=== PATIENT | female | born 1995 | race Caucasian/White ===

== ENCOUNTER 2017-10-17 17:32 | Inpatient (IN) | payer OTHER ==
[~2017-10-17] VITALS: Ht 152.4 cm; Wt 51.8 kg
[~2017-10-17 17:32] MED LIST: BACTRIM,SEPT1 TABLET PO; PERCOCET 7.51 TABLET PO; PREDNISONE10 MG PO; VICODIN,LORT1 TABLET PO
[2017-10-17 19:35] LABS: ALBUMIN 4.1 g/dL (3.2-4.8); CHLORIDE 97 mEq/L (99-109); POTASSIUM 2.7 mEq/L (3.7-5.4); SODIUM 130 mEq/L (136-147)
[2017-10-17 19:37] LABS: GLUCOSE 136 mg/dL (70-99)
[2017-10-17 19:38] LABS: TOTAL PROTEIN 7.7 g/dL (6.4-8.3)
[2017-10-17 19:39] LABS: TOTAL BILIRUBIN 0.5 mg/dL (0.0-1.0)
[2017-10-17 19:41] LABS: ALKALINE PHOSPHATASE 75 IU/L (3-129); CREATININE 0.8 mg/dL (0.6-1.3); GFR ESTIMATE (CALCULATED) > 59 mL/min/
[2017-10-17 19:42] LABS: UREA NITROGEN (BUN) 7 mg/dL (9-23)
[2017-10-17 19:43] LABS: AST (GOT) 65 IU/L (2-34)
[2017-10-17 19:44] LABS: ALT (GPT) 46 IU/L (3-49)
[2017-10-17 19:50] LABS: QUANTITATIVE HCG < 4.0 MIU/ML
[2017-10-17 19:56] LABS: HEMATOCRIT 37.5 % (36.0-46.0); HEMOGLOBIN 13.4 G/DL (11.9-15.5); MCH 28.5 PG (29.0-34.0); MCHC 35.7 G/DL (30.0-36.0); MCV 79.6 FL (83-99); PLATELET COUNT 120 K/uL (156-360); RBC DIS.WIDTH-SD 34.9 % (39-53); RED BLOOD COUNT 4.71 M/uL (3.80-5.20); WHITE BLOOD COUNT 7.7 K/uL (4.1-10.2)
[2017-10-17 19:59] LABS: APPEARANCE CLEAR ((CLEAR)); BILIRUBIN NEGATIVE; BLOOD LARGE; COLOR STRAW ((YELLOW)); GLUCOSE (STRIP) NEGATIVE; KETONES NEGATIVE; LEUKOCYTES NEGATIVE; NITRITE NEGATIVE; PROTEIN (STRIP) NEGATIVE; SPECIFIC GRAVITY 1.004 (1.000-1.030); UROBILINOGEN 0.2 MG/DL (0.2-1.0)
[2017-10-17 20:11] LABS: BACTERIA RARE /HPF; EPITHELIAL CELLS 1+ /HPF; MUCUS TRACE /LPF; RED BLOOD CELLS 0-5 /HPF (0-5); UCUL ADDED? NO; WHITE BLOOD CELLS 0-5 /HPF (0-5)
[2017-10-17 20:33] LABS: BASOPHIL (%) 0.8 % (0-1); BASOPHIL COUNT 0.1 K/uL (0-0.1); EOSINOPHIL (%) 0 % (0-5); IMMATURE GRANULOCYTE (%) 0.6 % (0.0-0.7); LYMPHOCYTE (%) 21.9 % (15-42); LYMPHOCYTE COUNT 1.7 K/uL (1.0-2.8); MONOCYTE (%) 7.1 % (3-12); MONOCYTE COUNT 0.6 K/uL (0-0.8); NEUTROPHIL (%) 69.6 % (45-76); NEUTROPHIL COUNT 5.4 K/uL (1.8-6.4)
[2017-10-17] MEDS ORDERED: TYLENOL EXTRA500 MG PO (20:37)
[2017-10-17] MEDS ORDERED: ONCE DAILY1 EACH PO (20:38)
[2017-10-18 00:32] VITALS: BP 105/58
[2017-10-18 01:18] LABS: TROP-I INTERPRETATION NEGATIVE; TROPONIN-I 0.01 ng/mL (0.0-0.30)
[2017-10-18 03:48] VITALS: BP 107/53
[2017-10-18 06:39] LABS: CHLORIDE 105 MEQ/L (99-109); CREATININE 0.5 MG/DL (0.6-1.3); GFR ESTIMATE (CALCULATED) > 59 mL/min/; GLUCOSE 108 mg/dL (70-99); SODIUM 136 MEQ/L (136-147); UREA NITROGEN (BUN) 6 mg/dL (9-23)
[2017-10-18 06:42] LABS: TROP-I INTERPRETATION NEGATIVE; TROPONIN-I < 0.01 ng/mL (0.0-0.30)
[2017-10-18 06:45] LABS: HEMATOCRIT 31.6 % (36.0-46.0); MCH 27.4 PG (29.0-34.0); MCHC 34.2 G/DL (30.0-36.0); MCV 80.2 FL (83-99); PLATELET COUNT 113 K/uL (156-360); RBC DIS.WIDTH-CV 12.2 % (11.8-14.6); RBC DIS.WIDTH-SD 35.8 % (39-53); RED BLOOD COUNT 3.94 M/uL (3.80-5.20); WHITE BLOOD COUNT 4.6 K/uL (4.1-10.2)
[2017-10-18 06:46] LABS: HEMOGLOBIN 10.8 G/DL (11.9-15.5); POTASSIUM 3.8 MEQ/L (3.7-5.4)
[2017-10-18 07:06] VITALS: BP 118/65
[2017-10-18 11:04] VITALS: BP 109/68
[2017-10-18 15:08] VITALS: BP 112/51
[2017-10-18 15:54] LABS: HEMATOCRIT 34.6 % (36.0-46.0); HEMOGLOBIN 11.7 G/DL (11.9-15.5); MCV 81.8 FL (83-99)
[2017-10-18 20:08] VITALS: BP 103/48
[2017-10-19 00:28] VITALS: BP 96/54
[2017-10-19 03:45] VITALS: BP 90/54
[2017-10-19 07:12] VITALS: BP 104/55
[2017-10-19 08:38] LABS: HEMATOCRIT 32.1 % (36.0-46.0); MCH 27.8 PG (29.0-34.0); MCHC 34.3 G/DL (30.0-36.0); MCV 81.3 FL (83-99); PLATELET COUNT 119 K/uL (156-360); RBC DIS.WIDTH-CV 12.9 % (11.8-14.6); RBC DIS.WIDTH-SD 38.3 % (39-53); RED BLOOD COUNT 3.95 M/uL (3.80-5.20); WHITE BLOOD COUNT 4.3 K/uL (4.1-10.2)
[2017-10-19 08:49] LABS: CHLORIDE 105 MEQ/L (99-109); CREATININE 0.4 MG/DL (0.6-1.3); CREATININE 0.5 MG/DL (0.6-1.3); GFR ESTIMATE (CALCULATED) > 59 mL/min/; GLUCOSE 108 mg/dL (70-99); POTASSIUM 3.6 MEQ/L (3.7-5.4); SODIUM 137 MEQ/L (136-147); UREA NITROGEN (BUN) 5 mg/dL (9-23)
[2017-10-19 09:22] LABS: VANCOMYCIN, TROUGH 3.7 MCG/ML (10-20)
[2017-10-19 10:26] LABS: HEPATITIS B SURFACE ANTIGEN Nonreactive
[2017-10-19 10:27] LABS: HIV-1/2 AB/AG COMBO Nonreactive
[2017-10-19 10:34] LABS: HEPATITIS C ANTIBODY REACTIVE
[2017-10-19 15:27] VITALS: BP 96/50
[2017-10-19 23:30] VITALS: BP 97/46
[2017-10-20 06:23] LABS: HEMATOCRIT 32.7 % (36.0-46.0); HEMOGLOBIN 11.1 G/DL (11.9-15.5); MCHC 33.9 G/DL (30.0-36.0); MCV 82.6 FL (83-99); PLATELET COUNT 145 K/uL (156-360); RBC DIS.WIDTH-CV 13.2 % (11.8-14.6); RED BLOOD COUNT 3.96 M/uL (3.80-5.20); WHITE BLOOD COUNT 4.8 K/uL (4.1-10.2)
[2017-10-20 06:44] LABS: CHLORIDE 108 MEQ/L (99-109); CREATININE 0.4 MG/DL (0.6-1.3); GFR ESTIMATE (CALCULATED) > 59 mL/min/; GLUCOSE 135 mg/dL (70-99); POTASSIUM 3.7 MEQ/L (3.7-5.4); SODIUM 142 MEQ/L (136-147); UREA NITROGEN (BUN) 5 mg/dL (9-23)
[2017-10-20 12:00] VITALS: BP 97/54
[2017-10-20 23:53] VITALS: BP 100/54
[2017-10-21 07:02] VITALS: BP 114/56
[2017-10-21] MEDS ORDERED: ZYVOX600 MG PO (11:04)
[2017-10-21 15:19] VITALS: BP 105/53
[2017-10-21 23:23] VITALS: BP 108/59
[2017-10-22 07:44] VITALS: BP 101/53
[2017-10-22 15:57] VITALS: BP 121/62
[2017-10-23 00:06] VITALS: BP 103/55
[2017-10-23 07:37] VITALS: BP 108/59
[2017-10-23] MEDS ORDERED: HYDROXYZINE PAM25 MG PO (11:40)
== END 2017-10-23 12:03 | disposition home or self-care (01) | DRG 871 ==
LOC: EME 17:32 → EDOF 22:31 → 5SOUTH 22:31 → ENRESERV 22:38 → 5SOUTH 10-18 00:01 → ENRESERV 10-18 00:04 → 5SOUTH 10-23 12:03
PROVIDERS: Hospitalist; Internal Medicine Infectious Disease; Physician Assistant; Physician Assistant Medical
DX: A41.01 Sepsis due to Methicillin susceptible Staphylococcus aureus (principal); I33.0 Acute and subacute infective endocarditis; I26.90 Septic pulmonary embolism without acute cor pulmonale; F15.10 Other stimulant abuse, uncomplicated; E87.1 Hypo-osmolality and hyponatremia; E87.6 Hypokalemia; B19.20 Unspecified viral hepatitis C without hepatic coma; D69.6 Thrombocytopenia, unspecified; D64.9 Anemia, unspecified; M41.9 Scoliosis, unspecified; F17.210 Nicotine dependence, cigarettes, uncomplicated; F11.11 Opioid abuse, in remission
CPT/HCPCS: 71046; 71275; 80048; 80053; 80202; 81003; 82565; 83605; 84484; 84702; 85014; 85018; 85025; 85027; 86803; 87040; 87077; 87186; 87340; 87389; 87801; 93005; 93306; 99281; 99285; J0696; J1580; J1650; J2405; J2543; J3370; J7030; J7050; Q0177; S0032

== ENCOUNTER 2017-10-31 02:16 | Inpatient (IN) | payer OTHER ==
[~2017-10-31] VITALS: Ht 165.1 cm; Wt 58.9 kg
[~2017-10-31 02:16] MED LIST changes: +HYDROXYZINE PAM25 MG PO; +ONCE DAILY1 EACH PO; +TYLENOL EXTRA500 MG PO; +ZYVOX600 MG PO
[2017-10-31 04:29] LABS: BASOPHIL (%) 0.1 % (0-1); EOSINOPHIL (%) 0 % (0-5); HEMATOCRIT 30.9 % (36.0-46.0); HEMOGLOBIN 10.5 G/DL (11.9-15.5); IMMATURE GRANULOCYTE (%) 0.4 % (0.0-0.7); LYMPHOCYTE (%) 7.3 % (15-42); LYMPHOCYTE COUNT 0.6 K/uL (1.0-2.8); MCH 28.5 PG (29.0-34.0); MONOCYTE (%) 7.8 % (3-12); MONOCYTE COUNT 0.6 K/uL (0-0.8); NEUTROPHIL (%) 84.4 % (45-76); NEUTROPHIL COUNT 6.6 K/uL (1.8-6.4); PLATELET COUNT 155 K/uL (156-360); RBC DIS.WIDTH-CV 14.5 % (11.8-14.6); RBC DIS.WIDTH-SD 43.7 % (39-53); RED BLOOD COUNT 3.68 M/uL (3.80-5.20); WHITE BLOOD COUNT 7.8 K/uL (4.1-10.2)
[2017-10-31 04:37] LABS: CHLORIDE 97 mEq/L (99-109); POTASSIUM 3.4 mEq/L (3.7-5.4); SODIUM 131 mEq/L (136-147)
[2017-10-31 04:39] LABS: GLUCOSE 116 mg/dL (70-99)
[2017-10-31 04:43] LABS: CREATININE 0.6 mg/dL (0.6-1.3); GFR ESTIMATE (CALCULATED) > 59 mL/min/
[2017-10-31 04:44] LABS: UREA NITROGEN (BUN) 8 mg/dL (9-23)
[2017-10-31 05:52] LABS: ALBUMIN 3.6 g/dL (3.2-4.8)
[2017-10-31 05:55] LABS: TOTAL PROTEIN 6.9 g/dL (6.4-8.3)
[2017-10-31 05:57] LABS: TOTAL BILIRUBIN 0.7 mg/dL (0.0-1.0)
[2017-10-31 05:58] LABS: ALKALINE PHOSPHATASE 79 IU/L (3-129)
[2017-10-31 06:00] LABS: AST (GOT) 22 IU/L (2-34); DIRECT BILIRUBIN 0.3 mg/dL (0.0-0.3)
[2017-10-31 06:01] LABS: ALT (GPT) 21 IU/L (3-49); LIPASE 14 U/L (1.0-51.0)
[2017-10-31 08:55] LABS: APPEARANCE SL.HAZY ((CLEAR)); BILIRUBIN NEGATIVE; BLOOD SMALL; COLOR YELLOW ((YELLOW)); GLUCOSE (STRIP) NEGATIVE; KETONES NEGATIVE; LEUKOCYTES LARGE; NITRITE NEGATIVE; PROTEIN (STRIP) NEGATIVE; SPECIFIC GRAVITY 1.003 (1.000-1.030); UROBILINOGEN 0.2 MG/DL (0.2-1.0)
[2017-10-31 09:13] LABS: BACTERIA 1+ /HPF; EPITHELIAL CELLS 1+ /HPF; MUCUS NONE SEEN /LPF; WHITE BLOOD CELLS 30-40 /HPF (0-5)
[2017-10-31 13:22] VITALS: BP 109/48
[2017-10-31 20:02] VITALS: BP 98/50
[2017-10-31 23:22] VITALS: BP 88/53
[2017-11-01 00:33] VITALS: BP 97/52
[2017-11-01 03:40] VITALS: BP 99/57
[2017-11-01 06:22] LABS: HEMATOCRIT 23.6 % (36.0-46.0); MCH 28.5 PG (29.0-34.0); MCHC 33.9 G/DL (30.0-36.0); PLATELET COUNT 131 K/uL (156-360); RBC DIS.WIDTH-CV 15.1 % (11.8-14.6); RBC DIS.WIDTH-SD 45.2 % (39-53); WHITE BLOOD COUNT 6.3 K/uL (4.1-10.2)
[2017-11-01 06:26] LABS: RED BLOOD COUNT 2.81 M/uL (3.80-5.20)
[2017-11-01 06:28] LABS: CHLORIDE 110 MEQ/L (99-109); CREATININE 0.4 MG/DL (0.6-1.3); GFR ESTIMATE (CALCULATED) > 59 mL/min/; GLUCOSE 119 mg/dL (70-99); POTASSIUM 3.5 MEQ/L (3.7-5.4); SODIUM 141 MEQ/L (136-147); UREA NITROGEN (BUN) 8 mg/dL (9-23)
[2017-11-01 06:41] LABS: VANCOMYCIN, TROUGH 4.1 MCG/ML (10-20)
[2017-11-01 06:58] VITALS: BP 133/61
[2017-11-01 11:00] VITALS: BP 91/50
[2017-11-01 15:00] VITALS: BP 96/60
[2017-11-01 19:15] VITALS: BP 104/52
[2017-11-02 00:39] VITALS: BP 100/58
[2017-11-02 04:25] VITALS: BP 112/58
[2017-11-02 07:21] VITALS: BP 110/58
[2017-11-02 09:04] LABS: BASOPHIL (%) 0.5 % (0-1); EOSINOPHIL (%) 0.2 % (0-5); HEMATOCRIT 24.6 % (36.0-46.0); HEMOGLOBIN 8.2 G/DL (11.9-15.5); LYMPHOCYTE (%) 16.7 % (15-42); LYMPHOCYTE COUNT 1.1 K/uL (1.0-2.8); MCH 28.1 PG (29.0-34.0); MCHC 33.3 G/DL (30.0-36.0); MCV 84.2 FL (83-99); MONOCYTE (%) 8.4 % (3-12); MONOCYTE COUNT 0.5 K/uL (0-0.8); NEUTROPHIL (%) 73.2 % (45-76); NEUTROPHIL COUNT 4.6 K/uL (1.8-6.4); PLATELET COUNT 155 K/uL (156-360); RBC DIS.WIDTH-CV 15.8 % (11.8-14.6); RBC DIS.WIDTH-SD 47.9 % (39-53); RED BLOOD COUNT 2.92 M/uL (3.80-5.20); WHITE BLOOD COUNT 6.3 K/uL (4.1-10.2)
[2017-11-02 09:27] LABS: CHLORIDE 105 MEQ/L (99-109); CREATININE 0.4 MG/DL (0.6-1.3); GFR ESTIMATE (CALCULATED) > 59 mL/min/; GLUCOSE 137 mg/dL (70-99); MAGNESIUM 1.8 mg/dl (1.3-2.7); POTASSIUM 3.8 MEQ/L (3.7-5.4); SODIUM 139 MEQ/L (136-147); UREA NITROGEN (BUN) 4 mg/dL (9-23)
[2017-11-02 15:12] VITALS: BP 110/67
[2017-11-02 23:51] VITALS: BP 102/57
[2017-11-03 08:07] VITALS: BP 101/51
[2017-11-03 15:49] VITALS: BP 107/53
[2017-11-03 23:44] VITALS: BP 105/50
[2017-11-04 08:25] VITALS: BP 116/65
[2017-11-04 09:03] LABS: BASOPHIL (%) 0.5 % (0-1); EOSINOPHIL (%) 0.5 % (0-5); HEMATOCRIT 24.5 % (36.0-46.0); HEMOGLOBIN 7.9 G/DL (11.9-15.5); IMMATURE GRANULOCYTE (%) 0.6 % (0.0-0.7); LYMPHOCYTE (%) 18.1 % (15-42); LYMPHOCYTE COUNT 1.4 K/uL (1.0-2.8); MCH 27.2 PG (29.0-34.0); MCHC 32.2 G/DL (30.0-36.0); MCV 84.5 FL (83-99); MONOCYTE (%) 12.2 % (3-12); NEUTROPHIL (%) 68.1 % (45-76); NEUTROPHIL COUNT 5.3 K/uL (1.8-6.4); RBC DIS.WIDTH-CV 16.2 % (11.8-14.6); RBC DIS.WIDTH-SD 48.1 % (39-53); WHITE BLOOD COUNT 7.8 K/uL (4.1-10.2)
[2017-11-04 09:06] LABS: PLATELET COUNT 215 K/uL (156-360)
[2017-11-04 09:25] LABS: CHLORIDE 103 MEQ/L (99-109); CREATININE 0.5 MG/DL (0.6-1.3); GFR ESTIMATE (CALCULATED) > 59 mL/min/; GLUCOSE 107 mg/dL (70-99); POTASSIUM 3.8 MEQ/L (3.7-5.4); SODIUM 139 MEQ/L (136-147); UREA NITROGEN (BUN) 6 mg/dL (9-23)
[2017-11-04 15:13] VITALS: BP 113/59
[2017-11-04 23:20] VITALS: BP 95/53
[2017-11-05 07:38] VITALS: BP 108/65
[2017-11-05 10:05] LABS: BASOPHIL (%) 0.4 % (0-1); EOSINOPHIL (%) 0.7 % (0-5); EOSINOPHIL COUNT 0.1 K/uL (0-0.3); HEMATOCRIT 23.6 % (36.0-46.0); HEMOGLOBIN 7.7 G/DL (11.9-15.5); IMMATURE GRANULOCYTE (%) 0.9 % (0.0-0.7); LYMPHOCYTE (%) 15.1 % (15-42); LYMPHOCYTE COUNT 1.5 K/uL (1.0-2.8); MCHC 32.6 G/DL (30.0-36.0); MCV 85.8 FL (83-99); MONOCYTE (%) 6.9 % (3-12); MONOCYTE COUNT 0.7 K/uL (0-0.8); NEUTROPHIL COUNT 7.4 K/uL (1.8-6.4); PLATELET COUNT 248 K/uL (156-360); RBC DIS.WIDTH-CV 16.7 % (11.8-14.6); RBC DIS.WIDTH-SD 50.4 % (39-53); RED BLOOD COUNT 2.75 M/uL (3.80-5.20); WHITE BLOOD COUNT 9.8 K/uL (4.1-10.2)
[2017-11-05 10:28] LABS: CHLORIDE 105 MEQ/L (99-109); CREATININE 0.5 MG/DL (0.6-1.3); GFR ESTIMATE (CALCULATED) > 59 mL/min/; GLUCOSE 153 mg/dL (70-99); SODIUM 141 MEQ/L (136-147); UREA NITROGEN (BUN) 10 mg/dL (9-23)
[2017-11-05 15:27] VITALS: BP 97/52
[2017-11-06 00:25] VITALS: BP 99/46
[2017-11-06 06:06] LABS: BASOPHIL (%) 0.5 % (0-1); EOSINOPHIL (%) 1.7 % (0-5); EOSINOPHIL COUNT 0.1 K/uL (0-0.3); HEMOGLOBIN 8.4 G/DL (11.9-15.5); IMMATURE GRANULOCYTE (%) 1.5 % (0.0-0.7); LYMPHOCYTE (%) 24.5 % (15-42); MCH 27.9 PG (29.0-34.0); MCHC 32.3 G/DL (30.0-36.0); MCV 86.4 FL (83-99); MONOCYTE (%) 7.7 % (3-12); MONOCYTE COUNT 0.6 K/uL (0-0.8); NEUTROPHIL (%) 64.1 % (45-76); NEUTROPHIL COUNT 5.3 K/uL (1.8-6.4); PLATELET COUNT 310 K/uL (156-360); RBC DIS.WIDTH-CV 17.1 % (11.8-14.6); RBC DIS.WIDTH-SD 53.5 % (39-53); RED BLOOD COUNT 3.01 M/uL (3.80-5.20); WHITE BLOOD COUNT 8.3 K/uL (4.1-10.2)
[2017-11-06 06:27] LABS: CHLORIDE 106 MEQ/L (99-109); CREATININE 0.6 MG/DL (0.6-1.3); GFR ESTIMATE (CALCULATED) > 59 mL/min/; POTASSIUM 4.5 MEQ/L (3.7-5.4); SODIUM 142 MEQ/L (136-147); UREA NITROGEN (BUN) 8 mg/dL (9-23)
[2017-11-06 06:37] LABS: GLUCOSE 94 mg/dL (70-99)
[2017-11-06 07:28] VITALS: BP 102/56
[2017-11-06 16:00] VITALS: BP 101/58
[2017-11-06 19:35] VITALS: BP 110/79
[2017-11-06 22:58] VITALS: BP 110/79
== END 2017-11-07 00:10 | disposition short-term general hospital (02) | DRG 871 ==
LOC: EME 02:16 → EDOF 11:50 → 5SOUTH 11:50 → ENRESERV 11:51 → 5SOUTH 13:10
PROVIDERS: Hospitalist; Internal Medicine; Physician Assistant
DX: A41.01 Sepsis due to Methicillin susceptible Staphylococcus aureus (principal); I33.0 Acute and subacute infective endocarditis; I07.1 Rheumatic tricuspid insufficiency; Z86.711 Personal history of pulmonary embolism; E87.1 Hypo-osmolality and hyponatremia; E87.6 Hypokalemia; E86.0 Dehydration; I95.9 Hypotension, unspecified; Z91.14 Patient's other noncompliance with medication regimen; Z91.19 Patient's noncompliance with other medical treatment and regimen; M25.551 Pain in right hip; M54.41 Lumbago with sciatica, right side; M54.16 Radiculopathy, lumbar region; F19.10 Other psychoactive substance abuse, uncomplicated; F11.11 Opioid abuse, in remission; B18.2 Chronic viral hepatitis C; B36.9 Superficial mycosis, unspecified; B37.9 Candidiasis, unspecified; F17.200 Nicotine dependence, unspecified, uncomplicated
CPT/HCPCS: 71045; 72157; 72158; 74176; 76705; 80048; 80076; 80202; 81003; 83605; 83690; 83735; 85025; 85027; 87040; 87077; 87086; 87147; 87186; 87801; 93005; 93306; 99281; 99285; J0456; J0696; J1644; J1885; J2060; J3370; J7030; J7050; S0032